=== PATIENT | female | born 1945 | race Caucasian/White ===

== ENCOUNTER 2023-12-31 14:46 | Emergency (ER) | payer MEDICARE, MEDICAID ==
[~2023-12-31] VITALS: Ht 152.4 cm; Wt 75.9 kg
[2023-12-31] MEDS ORDERED: MELA10CA2 PO (15:09)
[2023-12-31] MEDS ORDERED: VENL75CA47 (15:09)
[2023-12-31] MEDS ORDERED: METO1TAB87 (15:09)
[2023-12-31] MEDS ORDERED: ATOR40TA75 (15:09)
[2023-12-31] MEDS ORDERED: NITR0.4S14 (15:09)
[2023-12-31] MEDS ORDERED: DILT240C83 (15:09)
[2023-12-31] MEDS ORDERED: MECL-209 PO (15:09)
[2023-12-31] MEDS ORDERED: LOSA25TA13 (15:09)
[2023-12-31] MEDS ORDERED: TREL1AER (15:09)
[2023-12-31] MEDS ORDERED: AMIO0.1T (15:09)
[2023-12-31] MEDS ORDERED: NYST1POW9 (15:09)
[2023-12-31] MEDS ORDERED: LEVE250T5 (15:09)
[2023-12-31] MEDS ORDERED: BRIL1TAB (15:09)
[2023-12-31] MEDS ORDERED: MONT10TA97 (15:09)
[2023-12-31] MEDS ORDERED: B-12100010 PO (15:09)
[2023-12-31] MEDS ORDERED: ATIV1TAB10 PO (15:09)
[2023-12-31] MEDS ORDERED: POTA1TAB23 (15:09)
[2023-12-31] MEDS ORDERED: DOXY100T2 (15:09)
[2023-12-31] MEDS ORDERED: PRED20TA (15:09)
[2023-12-31] MEDS ORDERED: FERR325T3 (15:09)
[2023-12-31] MEDS ORDERED: WARF4TAB52 (15:09)
[2023-12-31] MEDS ORDERED: ALBU8.5H (15:09)
[2023-12-31] MEDS ORDERED: FURO20TA2 (15:09)
[2023-12-31] MEDS ORDERED: TERB250T91 (15:09)
[2023-12-31] MEDS ORDERED: PANT40TA29 (15:09)
[2023-12-31 16:39] LABS: BASO % 0.3 % (0.0-1.0); EOS # 0.2 10^3/uL (0.0-0.5); EOS % 1.9 % (0.0-3.0); HEMATOCRIT 42.1 % (36.0-47.0); HEMOGLOBIN 12.9 g/dl (12.0-15.5); LYMPH # 1.5 10^3/uL (1.5-5.0); LYMPH % 15.5 % (24.0-44.0); MEAN CORPUSCULAR HEMOGLOBIN 29.3 pg (27.0-33.0); MEAN CORPUSCULAR HGB CONC 30.6 g/dl (32.0-36.5); MEAN CORPUSCULAR VOLUME 95.7 fl (80.0-96.0); MONO # 0.7 10^3/uL (0.0-0.8); MONO % 7.4 % (2.0-8.0); NEUTROPHILS # 7.4 10^3/uL (1.5-8.5); NEUTROPHILS % 74.5 % (36.0-66.0); PLATELET COUNT, AUTOMATED 176 10^3/uL (150-450); WHITE BLOOD COUNT 9.9 10^3/uL (4.0-10.0)
[2023-12-31 16:52] LABS: INR 3.12; PARTIAL THROMBOPLASTIN TIME 36.6 SECONDS (24.8-34.2)
[2023-12-31 17:10] LABS: LIPASE 35 U/L (12-53)
[2023-12-31 17:12] LABS: ALBUMIN 2.7 G/DL (3.2-5.2); ALKALINE PHOSPHATASE 101 U/L (46-116); ALT/SGPT 21 U/L (7.0-40); AST/SGOT 18 U/L (<34); BILIRUBIN,DIRECT < 0.1 MG/DL (<0.4); BILIRUBIN,TOTAL 0.3 MG/DL (0.3-1.2); BLOOD UREA NITROGEN 17 MG/DL (9-23); CALCIUM LEVEL 8.9 MG/DL (8.3-10.6); CARBON DIOXIDE LEVEL 34 MMOL/L (20-31); CHLORIDE LEVEL 102 MMOL/L (98-107); CK-MB VALUE MASS 1.3 NG/ML (<3.6); CREATININE FOR GFR 1.31 MG/DL (0.55-1.30); GLOMERULAR FILTRATION RATE 41.6 (>32); GLUCOSE, FASTING 76 MG/DL (74-106); POTASSIUM SERUM 4.3 MMOL/L (3.5-5.1); SODIUM LEVEL 137 MMOL/L (136-145); TOTAL PROTEIN 6.4 G/DL (5.7-8.2)
[2023-12-31 17:14] LABS: FREE T4 1.23 NG/DL (0.89-1.76)
[2023-12-31 17:17] LABS: CPK CREATINE PHOSPHOKINASE 35 U/L (34-145); MB/CK RELATIVE INDEX 3.71 (< OR =4)
[2023-12-31 17:47] LABS: CK-MB VALUE MASS < 1.0 NG/ML (<3.6)
[2023-12-31 17:50] LABS: CPK CREATINE PHOSPHOKINASE 31 U/L (34-145); MB/CK RELATIVE INDEX 3.22 (< OR =4)
[2023-12-31] MEDS ORDERED: CEFD300C PO (18:05)
[2023-12-31] MEDS ORDERED: PRED10TA2 PO (18:05)
[2023-12-31] MEDS ORDERED: ZITHTAB PO (18:05)
[2023-12-31] MEDS: predniSONE 20 MG TAB PO ONE (18:19)
[2023-12-31] MEDS: AZITHROMYCIN 250MG TABLET PO ONE (18:20)
[2023-12-31] MEDS: CEFDINIR 300 MG CAP (OMNICEF) PO ONE (18:20)
[2023-12-31 18:50] VITALS: BP 162/88; TEMP 97; O2SAT 96
== END 2023-12-31 18:54 | disposition home or self-care (01) ==
LOC: M ED 14:46
DX: J18.9 Pneumonia, unspecified organism (principal); M16.12 Unilateral primary osteoarthritis, left hip; I48.91 Unspecified atrial fibrillation; J44.9 Chronic obstructive pulmonary disease, unspecified; K21.9 Gastro-esophageal reflux disease without esophagitis; E78.5 Hyperlipidemia, unspecified; G40.909 Epilepsy, unspecified, not intractable, without status epilepticus; F41.9 Anxiety disorder, unspecified; F32.9 Major depressive disorder, single episode, unspecified; N18.9 Chronic kidney disease, unspecified; F17.200 Nicotine dependence, unspecified, uncomplicated; Z88.1 Allergy status to other antibiotic agents; Z79.01 Long term (current) use of anticoagulants; Z86.79 Personal history of other diseases of the circulatory system; Z79.52 Long term (current) use of systemic steroids; Z79.02 Long term (current) use of antithrombotics/antiplatelets; Z79.2 Long term (current) use of antibiotics; Z79.899 Other long term (current) drug therapy
CPT/HCPCS: 36415; 71045; 73502; 80048; 80076; 82550; 82553; 83690; 84439; 84443; 84484; 85025; 85610; 85730; 93005; 99284; J7512